=== PATIENT | male | born 1990 | race American Indian/Alaskan Native ===

== ENCOUNTER 2018-01-07 14:34 | Emergency (ER) | payer SELFPAY | END 2018-01-07 15:00 | disposition left against medical advice (07) | LOC: DL.ED 14:34 | DX: Z53.21 Procedure and treatment not carried out due to patient leaving prior to being seen by health care provider (principal) ==

== ENCOUNTER 2018-02-25 22:31 | Emergency (ER) | payer SELFPAY | END 2018-02-25 22:48 | disposition left against medical advice (07) | LOC: EDBD → DL.ED 22:31 → MERGE 22:31 → DL.ED 22:48 | DX: Z53.21 Procedure and treatment not carried out due to patient leaving prior to being seen by health care provider (principal) ==

== ENCOUNTER 2018-02-26 09:42 | Emergency (ER) | payer SELFPAY ==
--- NOTE | 2018-02-26 10:17 | EDM.PDOC ---
ED HPI GENERAL MEDICAL PROBLEM - General Chief Complaint: General Stated Complaint: PAIN IN JAW Time Seen by Provider: 02/26/18 10:16 Source of Information: Reports: Patient, RN, RN Notes Reviewed History Limitations: Reports: No Limitations - History of Present Illness INITIAL COMMENTS - FREE TEXT/NARRATIVE: C/O chronic dental decay with the right lower rear molar becoming painful last week, and swelling of the adj. gums and worsening pain over the last several days. Denies drainage from the tooth or gums. Has a dentist appointment, but unable to be seen until next week. 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 [No Known Home Meds] 02/26/18 [History] Past Medical History - Past Health History Medical/Surgical History: Denies Medical/Surgical History Social & Family History - Family History Family Medical History: Noncontributory - Tobacco Use Smoking Status *Q: Current Every Day Smoker Years of Tobacco use: 14 Packs/Tins Daily: 1 - Caffeine Use Caffeine Use: Reports: Soda - Recreational Drug Use Recreational Drug Use: No - Living Situation & Occupation Living situation: Reports: with Family ED ROS GENERAL - Review of Systems Review Of Systems: ROS reveals no pertinent complaints other than HPI. ED EXAM, GENERAL - Physical Exam Exam: See Below Exam Limited By: No Limitations General Appearance: Alert, WD/WN, No Apparent Distress Eye Exam: Bilateral Eye: Normal Inspection Ears: Normal External Exam, Normal Canal, Hearing Grossly Normal, Normal TMs Nose: Normal Inspection, Normal Mucosa, No Blood Throat/Mouth: Normal Lips, Normal Oropharynx, Normal Voice, No Airway Compromise , Other (Right mandibular gum swelling but not fluctuant, extensive deep caries at tooth #31.) Head: Atraumatic, Normocephalic, Facial Tenderness. No: Facial Swelling Neck: Normal Inspection, Supple, Non-Tender, Full Range of Motion Respiratory/Chest: No Respiratory Distress, Lungs Clear, Normal Breath Sounds, No Accessory Muscle Use, Chest Non-Tender Cardiovascular: Regular Rate, Rhythm Neurological: Alert, Oriented, No Motor/Sensory Deficits Psychiatric: Normal Mood Skin Exam: Warm, Dry, Intact, Normal Color, No Rash Course - Vital Signs Last Recorded V/S: Last Vital Signs Temp 36.8 C 02/26/18 10:07 Pulse 82 02/26/18 10:07 Resp 16 02/26/18 10:07 BP 141/98 H 02/26/18 10:07 Pulse Ox 100 02/26/18 10:07 Departure - Departure Time of Disposition: 10:25 Disposition: Home, Self-Care 01 Condition: Good Clinical Impression: Dental abscess, Dental caries - Discharge Information Instructions: Dental Abscess, [id number] Forms: ED Department Discharge Additional Instructions: Rx: Tylenol No. 3 *Do not drive while under the influence of this medication. Rx: Amoxicillin 500mg Rx: Flagy 500mg Rx: Viscous Lidocaine Gel 2% Follow up with dentist at first available appointment.
== END 2018-02-26 10:33 | disposition home or self-care (01) ==
LOC: EDBD → DL.ED 09:42 → MERGE 09:42 → DL.ED 10:33
DX: K04.7 Periapical abscess without sinus (principal); K02.9 Dental caries, unspecified; F17.210 Nicotine dependence, cigarettes, uncomplicated
CPT/HCPCS: 99282